=== PATIENT | female | born 1995 | race African-American/Black ===

== ENCOUNTER 2016-11-29 13:53 | Emergency (ER) | payer SELFPAY ==
[~2016-11-29] VITALS: Ht 162.6 cm; Wt 52.0 kg
[~2016-11-29 13:53] MED LIST: MACR100C2 PO
[2016-11-29 13:55] VITALS: BP 111/61; PULSE 53; RESP 12; TEMP 98.2; O2SAT 97
--- NOTE | 2016-11-29 14:16 | PD ---
HPI Chief Complaint: Injury Time Seen by Provider: 14:16 Travel History International Travel<30 days: No Contact w/Intl Traveler<30days: No Traveled to known affect area: No History of Present Illness HPI 21-year-old female presents to the ED for evaluation of 6/10 right-sided knee pain, onset after falling onto the knee at work 2 days ago. Patient has been ambulatory since the accident. Denies hitting her head or loss of consciousness. She denies numbness, tingling, limitations to range of motion or loss of strength in the extremity. No treatment attempted at home. Patient denies chronic health problems, takes no daily medications. NKDA. PFSH Past Medical History Diminished Hearing: No Kidney Stones: Yes Immunizations Current: Yes ?: Not : 4 Miscarriage: 2 : 2 Dilation and Curettage (D&C): Yes Past Surgical History Other Surgery: Yes (D&C) Social History Alcohol Use: Yes (OCCASIONAL) Tobacco Use: No Substance Use: Yes (marijuana) Allergies-Medications (Allergen,Severity, Reaction): Coded Allergies: No Known Allergies (Unverified , 11/29/16) Reported Meds & Prescriptions Reported Meds & Active Scripts Active Macrobid (Nitrofurantoin Monoh/Nitrofur Macro) 100 Mg Cap 100 Mg PO BID 7 Days Review of Systems Except as stated in HPI: all other systems reviewed are Neg Physical Exam Narrative GENERAL: Well-nourished, well-developed black female, lying on the stretcher in no acute distress. SKIN: Warm and dry. HEAD: Normocephalic. EYES: No scleral icterus. No injection or drainage. NECK: Supple, trachea midline. No JVD or lymphadenopathy. CARDIOVASCULAR: Regular rate and rhythm without murmurs, gallops, or rubs. RESPIRATORY: Breath sounds equal bilaterally. No accessory muscle use. GASTROINTESTINAL: Abdomen soft, non-tender, nondistended. MUSCULOSKELETAL: No cyanosis, or edema. FOCUSED RIGHT LOWER EXTREMITY EXAM: There is a small bruise on the anterior tibia just distal to the knee joint. No patellar balloting. No TTP of the joint lines. Flexion and extension of the leg elicits pain. Anterior posterior drawer test negative. Valgus varus stress testing negative. 2+ DP pulse. Sensation intact to light touch distally. BACK: Nontender without obvious deformity. No CVA tenderness. Data Data Last Documented VS Vital Signs Date Time Temp Pulse Resp B/P Pulse Ox O2 Delivery O2 Flow Rate FiO2 11/29/16 13:55 98.2 53 12 111/61 97 Room Air Orders Knee, Complete (4vws) (11/29/16 14:21) Ice/Cold Pack (11/29/16 14:21) Ibuprofen (Motrin) (11/29/16 14:30) MDM Medical Decision Making Medical Screen Exam Complete: Yes Emergency Medical Condition: Yes Differential Diagnosis Musculoskeletal pain versus fracture versus ligamentous injury versus effusion versus other Narrative Course 21-year-old female presents to the ED for evaluation of 04/28 right-sided knee pain, onset after falling onto the knee at work 2 days ago. Patient has been ambulatory since the accident. Denies hitting her head or loss of consciousness. She denies numbness, tingling, limitations to range of motion or loss of strength in the extremity. Vitals reviewed. Physical exam reveals a nontoxic appearing white female in no acute distress. Talking on her cell phone, smiling. There is a small bruise on the anterior tibia just distal to the knee joint. No patellar balloting. No TTP of the joint lines. Flexion and extension of the leg elicits pain. Anterior/posterior drawer test, valgus/ varus stress testing negative. 2+ DP pulse. Sensation intact to light touch distally. Patient was administered 60 mg ibuprofen, ice pack was applied. X- ray reveals no acute bony injury per radiology read. This is musculoskeletal pain. An Raúl wrap was applied. Patient was instructed to rest, ice, elevate the extremity. She is prescribed a short course of ibuprofen. She is instructed to return to normal, gentle activity as tolerated, follow-up with the primary care provider. She indicated understanding of instructions. She is amenable to plan of care. She is stable and discharged home. Diagnosis Primary Impression: Right anterior knee pain Referrals: Primary Care Physician Patient Instructions: General Instructions, Knee Pain (ED) Additional Instructions: Rest, ice, elevate the extremity to relieve pain and swelling symptoms. 600 milligram ibuprofen every 6-8 hours as needed for pain. Return to normal, gentle activities as tolerated. Follow-up with the primary care provider this week. Return to the ED for any urgent or emergent medical condition. Med/Other Pt SpecificInfo: Prescription(s) given Disposition: 01 DISCHARGE HOME Condition: Stable Mcfadden,Ethel PA Nov 29, 2016 14:16
[2016-11-29] MEDS ORDERED: IBUPROFEN 600 MG TAB PO ONE (14:30)
--- NOTE | 2016-11-29 14:51 | RADRPT ---
EXAM DATE/TIME: 11/29/2016 14:43 [facility] COMPARISON: No previous studies available for comparison. INDICATIONS : Right knee pain after fall. MEDICAL HISTORY : None. SURGICAL HISTORY : None. ENCOUNTER: Initial ACUITY: 2 days PAIN SCORE: 6/10 LOCATION: Right knee. FINDINGS: Four view examination of the right knee demonstrates no evidence of fracture or dislocation. Bony mi neralization is normal. The articular surfaces are intact. The suprapatellar soft tissues have a no rmal configuration. CONCLUSION: No acute disease. Star Alva MD on November 29, 2016 at 14:49 Board Certified Radiologist. This report was verified electronically.
[2016-11-29] MEDS ORDERED: IBUP-232 PO (14:58)
[2016-12-27] MEDS ORDERED: SPRI28TA PO (09:44)
== END 2016-11-29 15:08 | disposition home or self-care (01) ==
LOC: NEPB 13:53
DX: M25.561 Pain in right knee (principal); Z87.442 Personal history of urinary calculi; W19.XXXA Unspecified fall, initial encounter; Y99.0 Civilian activity done for income or pay
CPT/HCPCS: 73564; 99283

== ENCOUNTER 2017-02-12 17:29 | Emergency (ER) | payer SELFPAY ==
[~2017-02-12] VITALS: Ht 162.6 cm; Wt 57.0 kg
[~2017-02-12 17:29] MED LIST changes: -MACR100C2 PO; +SPRI28TA PO
[2017-02-12 17:31] VITALS: BP 125/78; PULSE 62; RESP 15; TEMP 98.2; O2SAT 98
[2017-02-13] MEDS ORDERED: PHEN0.4T PO (02:58)
[2017-02-13] MEDS ORDERED: CIPR-9 PO (02:58)
[2017-02-13] MEDS ORDERED: HYDR-3533 PO (02:58)
[2017-02-13] MEDS ORDERED: PROM25TA5 PO (02:58)
== END 2017-02-12 23:37 | disposition left against medical advice (07) ==
LOC: NED 23:37
DX: Z53.21 Procedure and treatment not carried out due to patient leaving prior to being seen by health care provider (principal)
CPT/HCPCS: 99281

== ENCOUNTER 2017-02-12 21:15 | Emergency (ER) | payer SELFPAY ==
[~2017-02-12] VITALS: Ht 152.4 cm; Wt 51.2 kg
[2017-02-12 21:36] VITALS: BP 105/72; PULSE 65; RESP 18; TEMP 97.4; O2SAT 100
[2017-02-12 22:15] VITALS: RESP 18
[2017-02-12] MEDS ORDERED: KETOROLAC TROMETHAMINE 30 MG/ML (IVP) VIAL IV PUSH ONE (23:15)
--- NOTE | 2017-02-12 23:15 | PD ---
HPI Chief Complaint: GI Complaint Time Seen by Provider: 22:52 Travel History International Travel<30 days: No Contact w/Intl Traveler<30days: No Traveled to known affect area: No History of Present Illness HPI 21-year-old female presents to the emergency department for complaint of 2 weeks of progressive worsening intermittent pelvic pain. No fever no chills nausea without vomiting or anorexia. No dysuria frequency urgency hematuria or flank pain. Patient's had scant vaginal discharge no vaginal bleeding. Patient 's last normal menses was 12/24/16. Patient states at the beginning of January when she was supposed 7. She had some spotting but had just recently been on control pills and because they were making her feel sick stopped the control pills. Patient denies home test was negative. Patient presents for complaint of increasing pelvic pain. Patient denies history of ovarian cyst. Patient is 4 para 0 AB 4 secondary to miscarriage 2 and elective 2. Patient denies history of ectopic or STI/STDs. Patient has had no recent respiratory illness, chest pain, back pain, joint or extremity pain. Patient rates current discomfort 7/10 in intensity. Patient 's had no change in bowel habits. Patient is unable to identify alleviating factors. Patient reports ambulation and sitting worsen symptoms. PFSH Past Medical History Narrative Medical Kidney stones, AB 4; D&C; occasional marijuana; nursing notes reviewed Medical History: Denies Significant Hx Diminished Hearing: No Kidney Stones: Yes Immunizations Current: Yes Tetanus Vaccination: Never Vaccinated Influenza Vaccination: No ?: Unknown LMP: 12/24/2016 : 4 Miscarriage: 2 : 2 Dilation and Curettage (D&C): Yes Past Surgical History Surgical History: No Previous Surgery Other Surgery: Yes (D&C) Social History Alcohol Use: No Tobacco Use: No Substance Use: Yes (MARIJUANA; OCCASSIONAL) Allergies-Medications (Allergen,Severity, Reaction): Coded Allergies: No Known Allergies (Unverified , 02/12/17) Reported Meds & Prescriptions Reported Meds & Active Scripts Active Pyridium (Phenazopyridine HCl) 100 Mg Tab 100 Mg PO Q8H PRN Lortab (Hydrocodone-Acetaminophen) 5-325 Mg Tab 1 Tab PO Q6H PRN Phenergan (Promethazine HCl) 25 Mg Tab 25 Mg PO Q6H PRN Cipro (Ciprofloxacin HCl) 500 Mg Tab 500 Mg PO BID 7 Days Review of Systems Except as stated in HPI: all other systems reviewed are Neg General / Constitutional: No: Fever, Chills HENT: No: Sore Throat, Congestion Cardiovascular: No: Chest Pain or Discomfort Respiratory: No: Shortness of Breath Gastrointestinal: Positive: Nausea, Abdominal Pain, No: Vomiting, Diarrhea Genitourinary: Positive: Pelvic Pain, Discharge, No: Urgency, Frequency, Dysuria, Flank Pain, Vaginal Bleeding Musculoskeletal: No: Myalgias, Arthralgias Skin: No Rash Neurologic: No: Weakness Psychiatric: No: Anxiety Hematologic/Lymphatic: No: Lymph Node Enlargement Physical Exam Narrative GENERAL: Developed well-nourished female in no acute distress no respiratory distress SKIN: Warm and dry. HEAD: Normocephalic. EYES: No scleral icterus. No injection or drainage. NECK: Supple, trachea midline. No JVD or lymphadenopathy. CARDIOVASCULAR: Regular rate and rhythm without murmurs, gallops, or rubs. RESPIRATORY: Breath sounds equal bilaterally. No accessory muscle use. GASTROINTESTINAL: Abdomen soft, reproducible suprapubic tenderness without guarding or rebound, nondistended. Pelvic exam: Normal external exam no redness induration or lesions; speculum exam scant white discharge no blood no clots no tissue cervical os closed; bimanual exam mild right adnexal tenderness without enlargement and mild cervical motion tenderness without uterine enlargement left adnexa not palpable. MUSCULOSKELETAL: No cyanosis, or edema. BACK: Nontender without obvious deformity. No CVA tenderness. Data Data Last Documented VS Vital Signs Date Time Temp Pulse Resp B/P Pulse Ox O2 Delivery O2 Flow Rate FiO2 02/13/17 02:57 16 02/13/17 02:47 97.7 65 100/64 99 Room Air Orders Complete Blood Count With Diff (02/12/17 22:52) Basic Metabolic Panel (Bmp) (02/12/17 22:52) Gc And Chlamydia Pcr (02/12/17 22:52) Wet Prep Profile (02/12/17 22:52) Urinalysis - C+S If Indicated (02/12/17 22:52) Ed Urine Pregnancytest Poc (02/12/17 22:52) Ketorolac Inj (Toradol Inj) (02/12/17 23:15) Urine Culture (02/12/17 23:07) Ceftriaxone Inj (Rocephin Inj) (02/13/17 00:15) Azithromycin (Zithromax) (02/13/17 01:45) Acetamin-Hydrocod 325-5 Mg (Pierson 5-325 (02/13/17 01:45) Labs Laboratory Tests Test 02/12/17 02/12/17 23:07 23:35 Clue Cells (Wet Prep) NONE SEEN Vaginal Trichomonas (Wet Prep) NONE SEEN Vaginal Yeast (Wet Prep) NONE SEEN Urine Color YELLOW Urine Turbidity SLIGHT Urine pH 5.5 Urine Specific [place] 1.023 Urine Protein NEG mg/dL Urine Glucose (UA) NEG mg/dL Urine Ketones TRACE mg/dL Urine Occult Blood NEG Urine Nitrite NEG Urine Bilirubin NEG Urine Leukocyte Esterase NEG Urine WBC 9-14 /hpf Urine WBC Clumps OCC Urine Squamous Epithelial 6-8 /hpf Cells Urine Bacteria MANY /hpf Urine Mucus MOD /lpf Microscopic Urinalysis Comment CULTURE INDICATED White Blood Count 8.9 TH/MM3 Red Blood Count 4.35 MIL/MM3 Hemoglobin 13.3 GM/DL Hematocrit 39.0 % Mean Corpuscular Volume 89.8 FL Mean Corpuscular Hemoglobin 30.5 PG Mean Corpuscular Hemoglobin 34.0 % Concent Red Cell Distribution Width 12.8 % Platelet Count 202 TH/MM3 Mean Platelet Volume 10.6 FL Neutrophils (%) (Auto) 71.6 % Lymphocytes (%) (Auto) 23.2 % Monocytes (%) (Auto) 4.0 % Eosinophils (%) (Auto) 0.6 % Basophils (%) (Auto) 0.6 % Neutrophils # (Auto) 6.2 TH/MM3 Lymphocytes # (Auto) 2.1 TH/MM3 Monocytes # (Auto) 0.4 TH/MM3 Eosinophils # (Auto) 0.1 TH/MM3 Basophils # (Auto) 0.1 TH/MM3 CBC Comment DIFF FINAL Differential Comment Sodium Level 140 MEQ/L Potassium Level 3.5 MEQ/L Chloride Level 105 MEQ/L Carbon Dioxide Level 25.8 MEQ/L Anion Gap 9 MEQ/L Blood Urea Nitrogen 12 MG/DL Creatinine 0.76 MG/DL Estimat Glomerular Filtration 117 ML/MIN Rate Random Glucose 72 MG/DL Calcium Level 9.4 MG/DL MDM Medical Decision Making Medical Screen Exam Complete: Yes Emergency Medical Condition: Yes Medical Record Reviewed: Yes Interpretation(s) POC hCG: Negative UA: White blood cells clumped white blood cells many bacteria culture indicated Wet prep: negative CBC & BMP Diagram 02/12/17 23:35 Differential Diagnosis Pelvic infection, STI, ovarian cyst, ectopic , ovarian torsion, UTI, renal colic, atypical appendicitis, tubo-ovarian abscess Narrative Course IV access obtained specimens collected and sent for resulting [id number] regnancy test negative IV fluids administered IV antibiotic Rocephin 1 g IV piggyback for UTI; no evidence for pyelonephritis and pelvic exam minimally tender to the right adnexa without palpable mass unlikely PID or tubo-ovarian abscess especially in view of afebrile and normal white cell count. Also no evidence for pyelonephritis. No imaging study indicated at this time. Review of labs found to be otherwise grossly normal range and patient stable for outpatient management Patient also received 1 g azithromycin by mouth Patient stable for outpatient management and follow-up with primary care provider Diagnosis Primary Impression: UTI (urinary tract infection) Referrals: Primary Care Physician 2 days Patient Instructions: General Instructions Additional Instructions: Increase fluid hydration Complete course of antibiotic as prescribed Follow-up with primary care provider No work times one day Take acetaminophen as needed for fever 100.4F or greater May use ibuprofen/Advil/Motrin 600 mg as often as every 6-8 hours as needed for fever 100.4F or greater or for pain associated with inflammation Med/Other Pt SpecificInfo: Prescription(s) given Scripts Phenazopyridine (Pyridium)100 Mg [id number] Mg PO Q8H PRN (DYSURIA) #6 TAB Ref 0 Prov:Darlyn Osman MD 02/13/17 Hydrocodone-Acetaminophen (Lortab)5-325 Mg Tab1 Tab PO Q6H PRN (PAIN) #7 TAB Ref 0 Prov:Darlyn Osman MD 02/13/17 Promethazine (Phenergan)25 Mg Tab25 Mg PO Q6H PRN (Nausea/Vomiting) #10 TAB Ref 0 Prov:Darlyn Osman MD 02/13/17 Ciprofloxacin (Cipro)500 Mg [id number] Mg PO BID 7 Days Ref 0 Prov:Darlyn Osman MD 02/13/17 Disposition: 01 DISCHARGE HOME Condition: Stable Darlyn Osman MD Feb 12, 2017 23:15
[2017-02-12 23:44] LABS: BLOOD, URINE NEG (NEG); GLUCOSE,URINE NEG (NEG); KETONE, URINE TRACE mg/dL (NEG); NITRITE,URINE NEG (NEG); PH, URINE 5.5 (5.0-8.5)
[2017-02-12 23:45] VITALS: BP 103/64; PULSE 57; RESP 22; O2SAT 99
[2017-02-12 23:57] LABS: URINE COLOR YELLOW (YELLW/STRAW)
[2017-02-12 23:58] LABS: MUCUS URINE MOD /lpf (OCC)
[2017-02-13] LABS: COMMENT (UR) CULTURE INDICATED; CULTURE IF INDICATED CULTURE INDICATED
[2017-02-13 00:01] LABS: BACTERIA, URINE MANY /hpf
[2017-02-13] MEDS ORDERED: cefTRIAXone INJ 1,000 MG in SODIUM CHLORIDE 0.9% INJ 100 ML IV ONE (00:15)
[2017-02-13 00:44] LABS: POTASSIUM 3.5 MEQ/L (3.5-5.1)
[2017-02-13 00:45] LABS: AUTOMATED NEUTROPHIL # 6.2 TH/MM3 (1.8-7.7); BASOPHIL # 0.1 TH/MM3 (0-0.2); BASOPHIL % 0.6 % (0.0-2.0); EOSINOPHIL # 0.1 TH/MM3 (0-0.4); EOSINOPHIL % 0.6 % (0.0-4.0); HEMO FLAGS DIFF FINAL; LYMPH % 23.2 % (9.0-44.0); LYMPHOCYTE # 2.1 TH/MM3 (1.0-4.8); MEAN CELL VOLUME 89.8 FL (80.0-100.0); MEAN CORPUSCULAR HEMOGLOBIN 30.5 PG (27.0-34.0); NEUT % 71.6 % (16.0-70.0); PLATELET COUNT 202 TH/MM3 (150-450); RED BLOOD COUNT 4.35 MIL/MM3 (4.00-5.30); RED CELL DISTRIBUTION WIDTH 12.8 % (11.6-17.2); WHITE BLOOD COUNT 8.9 TH/MM3 (4.0-11.0)
[2017-02-13 00:47] LABS: BICARBONATE 25.8 MEQ/L (21.0-32.0)
[2017-02-13 01:40] VITALS: BP 105/66; PULSE 66; RESP 18; O2SAT 99
[2017-02-13] MEDS ORDERED: ACETAMINOPHEN/HYDROcodone 325 MG/5 MG TAB PO ONE (01:45)
[2017-02-13] MEDS ORDERED: AZITHROMYCIN 250 MG TAB PO ONE (01:45)
[2017-02-13 02:47] VITALS: BP 100/64; PULSE 65; RESP 16; TEMP 97.7; O2SAT 99
[2017-02-13 02:57] VITALS: RESP 16
[2017-02-13] MEDS ORDERED: PHEN0.4T PO (02:58)
[2017-02-13] MEDS ORDERED: HYDR-3533 PO (02:58)
[2017-02-13] MEDS ORDERED: CIPR-9 PO (02:58)
[2017-02-13] MEDS ORDERED: PROM25TA5 PO (02:58)
[2017-02-13 11:56] LABS: CHLAMYDIA PCR NOT DETECTED (NOT DETECT); NEISSERIA PCR NOT DETECTED (NOT DETECT)
== END 2017-02-13 03:25 | disposition home or self-care (01) ==
LOC: PHED 21:15
DX: N39.0 Urinary tract infection, site not specified (principal); B96.20 Unspecified Escherichia coli [E. coli] as the cause of diseases classified elsewhere
CPT/HCPCS: 80048; 81001; 84703; 85025; 87077; 87086; 87186; 87210; 87491; 87591; 96365; 96375; 99284; J0696; J1885